=== PATIENT | male | born 1995 | race African-American/Black ===

== ENCOUNTER 2019-05-23 21:44 | Emergency (ER) | payer OTHER ==
[~2019-05-23] VITALS: Ht 167.6 cm; Wt 66.8 kg
[2019-05-23 21:45] VITALS: BP 136/78
[2019-05-24 01:32] LABS: BASO % 0.7 % (0.0-1.0); EOS # 0.1 10^3/uL (0.0-0.5); EOS % 1.7 % (0.0-3.0); HEMATOCRIT 43.5 % (42.0-52.0); HEMOGLOBIN 14.3 g/dl (13.5-17.5); LYMPH # 2.2 10^3/uL (1.5-5.0); LYMPH % 52.5 % (24.0-44.0); MEAN CORPUSCULAR HEMOGLOBIN 30.9 pg (27.0-33.0); MEAN CORPUSCULAR HGB CONC 32.9 g/dl (32.0-36.5); MONO # 0.4 10^3/uL (0.0-0.8); MONO % 8.9 % (0.0-5.0); NEUTROPHILS # 1.5 10^3/uL (1.5-8.5); NEUTROPHILS % 36.2 % (36.0-66.0); PLATELET COUNT, AUTOMATED 190 10^3/uL (150-450); RED BLOOD COUNT 4.63 10^6/uL (4.30-6.10); WHITE BLOOD COUNT 4.2 10^3/uL (4.0-10.0)
--- NOTE | 2019-05-24 01:45 | REPVR ---
PROCEDURE INFORMATION: Exam: US Abdomen Limited, Right Upper Quadrant Exam date and time: 05/24/19 (1:16am) Age: 24 years old Clinical indication: Epigastric / RUQ pain TECHNIQUE: Imaging protocol: Real-time ultrasound of the abdomen with image documentation. Examination was focused on the right upper quadrant. COMPARISON: No relevant prior studies available FINDINGS: The liver is visually normal in size and texture. Partially contracted gallbladder. The gallbladder has normal wall thickness (2.1 mm), with no stones nor sludge seen. No pericholecystic fluid is appreciated. The sonographic Berger's sign is reported to be (-). The CBD is not dilated (3.8 mm diameter). The pancreas appears unremarkable. The right kidney measures 11.0 cm in length, with no hydronephrosis appreciated. Small midpole cyst (8 x 6 x 9 mm size). No ascites is seen. IMPRESSION: No evidence of acute cholecystitis. No gallstones nor sludge. Normal gallbladder wall thickness. The sonographic Berger's sign is reported to be (-). No biliary dilatation. Electronically signed by: Pallavi Marrero On 05/24/2019 01:46:31 AM
[2019-05-24 02:04] LABS: ALT/SGPT 39 U/L (12-78); BILIRUBIN,DIRECT 0.2 MG/DL (0.0-0.2); BILIRUBIN,TOTAL 0.6 MG/DL (0.2-1.0); LIPASE 185 U/L (73-393)
[2019-05-24 02:17] LABS: CK-MB VALUE MASS < 1.0 NG/ML (<3.6); CPK CREATINE PHOSPHOKINASE 458 U/L (39-308); MB/CK RELATIVE INDEX 0.22 (< OR =4); TROPONIN I < 0.02 NG/ML (< 0.10)
[2019-05-24] MEDS ORDERED: IBUPROFEN 800 MG TAB PO ONE (02:30)
--- NOTE | 2019-05-24 21:39 | ECGEPIP ---
[facility] - ED Test Date: 2019-05-23 Pat Name: LEONARD CAST Department: Room: - Gender: Male Casing Blower: janette : 1995 Requested By: BEBO PERKINS PA-C Order Number: [id number] Reading MD: Brandon Perdomo Measurements Intervals Opp Rate: 53 P: 68 CT: 199 QRS: 29 QRSD: 94 T: 19 QT: 379 QTc: 358 Interpretive Statements SINUS BRADYCARDIA INCOMPLETE RIGHT BUNDLE BRANCH BLOCK POOR R WAVE PROGRESSION BENIGN EARLY REPOLARIZATION NO PRIORS FOR COMPARISON Electronically Signed on 05-24-2019 21:39:39 EST by Brandon Perdomo
== END 2019-05-24 03:09 | disposition home or self-care (01) ==
LOC: M ED 21:44
DX: R07.9 Chest pain, unspecified (principal); I45.19 Other right bundle-branch block

== ENCOUNTER → 2019-05-26 | Outpatient (CLI) | payer OTHER ==
--- NOTE | 2019-05-26 14:45 | REP ---
Supine abdomen two views for abdominal pain: The bowel gas pattern is normal. There are no calcifications. Skeletal structures and soft tissues otherwise are unremarkable. Impression: Normal bowel gas pattern. Electronically Signed by Ganesh Moore MD 05/26/2019 02:37 P
== END ==
LOC: M LRY 13:58
PROVIDERS: ATTEND Physician Assistant
DX: R10.84 Generalized abdominal pain (principal)
CPT/HCPCS: 74018; G0463

== ENCOUNTER 2020-03-14 13:37 | Emergency (ER) | payer OTHER ==
[~2020-03-14] VITALS: Ht 167.6 cm; Wt 74.8 kg
[2020-03-14 15:52] LABS: CHLAMYDIA DNA AMPLIFICATION NEGATIVE (NEGATIVE); GC DNA AMPLIFICATION NEGATIVE (NEGATIVE)
[2020-03-14 16:03] VITALS: BP 126/74
== END 2020-03-14 16:05 | disposition home or self-care (01) ==
LOC: M ED 13:37
DX: N48.89 Other specified disorders of penis (principal)

== ENCOUNTER 2021-04-29 20:12 | Emergency (ER) | payer OTHER ==
[~2021-04-29] VITALS: Ht 167.6 cm; Wt 77.3 kg
[2021-04-29 20:26] VITALS: BP 137/68
== END 2021-04-30 00:09 | disposition left against medical advice (07) ==
LOC: M ED 20:12
DX: Z53.21 Procedure and treatment not carried out due to patient leaving prior to being seen by health care provider (principal)

== ENCOUNTER 2021-10-31 14:22 | Emergency (ER) | payer OTHER ==
[~2021-10-31] VITALS: Ht 167.6 cm; Wt 78.9 kg
[2021-10-31] MEDS ORDERED: BENZONATATE 100MG CAPSULE PO ONE (19:00)
[2021-10-31] MEDS ORDERED: IBUPROFEN 600MG TAB PO ONE (19:00)
[2021-10-31] MEDS ORDERED: PSEUDOEPHEDRINE 30 MG TAB PO STA (19:00)
[2021-10-31] MEDS ORDERED: ALBUTEROL 90 MCG/ACT 8GM HFA INHALER INH ONE (19:00)
[2021-10-31] MEDS ORDERED: PSEU120T19 PO (20:10)
[2021-10-31] MEDS ORDERED: NAPR-837 PO (20:10)
[2021-10-31] MEDS ORDERED: BENZ200C70 PO (20:10)
[2021-10-31] MEDS ORDERED: PROAAER10 INH (20:10)
[2021-10-31 20:17] VITALS: BP 121/76
== END 2021-10-31 20:27 | disposition home or self-care (01) ==
LOC: M ED 14:22
DX: J06.9 Acute upper respiratory infection, unspecified (principal); R51.9 Headache, unspecified; R07.89 Other chest pain